=== PATIENT | male | born 1960 | race Caucasian/White ===

== ENCOUNTER 2017-01-24 20:43 | Emergency (ER) | payer BC, OTHER ==
[2017-01-24] MEDS ORDERED: Ketorolac Tromethamine 60 MG/2 ML VIAL ONE (20:57)
[2017-01-24] MEDS ORDERED: Sulfameth/Trimethoprim DS 800-160mg TAB ONE (20:57)
[2017-01-24] MEDS ORDERED: Cephalexin 250 MG CAP ONE (20:57)
== END 2017-01-24 21:20 | disposition home or self-care (01) ==
LOC: NAV ERS 20:43
DX: T24.011A Burn of unspecified degree of right thigh, initial encounter (principal); T31.0 Burns involving less than 10% of body surface; L03.115 Cellulitis of right lower limb; Z86.73 Personal history of transient ischemic attack (TIA), and cerebral infarction without residual deficits; X19.XXXA Contact with other heat and hot substances, initial encounter
CPT/HCPCS: 96372; J1885

== ENCOUNTER 2017-05-26 20:25 | Emergency (ER) | payer BC ==
[2017-05-26] MEDS ORDERED: Ondansetron HCl/PF 4 MG/2 ML Vial ONE (20:38)
[2017-05-26] MEDS ORDERED: Sodium Chloride 0.9% 1,000 ML ONE (20:44)
[2017-05-26 20:51] LABS: #Basophils 0.1 thou/uL (0.0-0.2); #Eosinphils 0.3 thou/uL (0.0-0.7); #Lymphocytes 2.9 thou/uL (1.20-3.40); #Monocytes 0.6 thou/uL (0.11-0.59); #Neutrophils 4.4 thou/uL (1.40-6.50); %Basophils 1.5 % (0.0-1.0); %Lymphocytes 34.7 % (21.0-51.0); %Monocytes 7.6 % (0.0-10.0); %Neutrophils 52.2 % (42.0-75.0); Hemoglobin 15.7 g/dL (14.0-18.0); Mean Corpuscular HGB CONC 33.3 g/dL (32.0-36.0); Mean Corpuscular Hemoglobin 30.8 pg (27.0-31.0); Mean Corpuscular Volume 92.4 fl (80.0-94.0); Mean Platelet Volume 7.3 fL (7.4-10.4); Platelet Count 249 thou/uL (130-400); Red Blood Cell (RBC) Count 5.09 mill/uL (4.70-6.10); White Blood Cell (WBC) Count 8.4 thou/uL (4.8-10.8)
[2017-05-26 21:11] LABS: ALT (SGPT) 24 U/L (8-55); AST (SGOT) 32 U/L (5-34); Albumin 4.6 g/dL (3.5-5.0); Alkaline Phosphatase 65 U/L (40-150); Anion Gap 17 mmol/L (10-20); BUN (Urea Nitrogen) 9 mg/dL (8.4-25.7); Bilirubin, Total 0.4 mg/dL (0.2-1.2); Calc. Creatinine Clearance 0 mL/min (70-130); Calcium 9.1 mg/dL (7.8-10.44); Carbon Dioxide 23 mmol/L (22-29); Chloride 99 mmol/L (98-107); Estimated GFR-MDRD 83; Glucose 96 mg/dL (70-105); Potassium 3.6 mmol/L (3.5-5.1); Protein, Total 7.6 g/dL (6.0-8.3); Sodium 135 mmol/L (136-145)
--- NOTE | 2017-05-26 21:24 | RAD ---
CHEST ONE VIEW 05/26/17 HISTORY: Food stuck in throat. COMPARISON: Chest radiograph 01/31/16. FINDINGS: The lungs are clear. No pneumothorax or effusion. The cardiac silhouette and mediastinal contours are within normal limits. IMPRESSION: No acute intrathoracic abnormality. POS: [id number]
== END 2017-05-26 22:58 | disposition short-term general hospital (02) ==
LOC: NAV ERS 20:25
DX: T18.128A Food in esophagus causing other injury, initial encounter (principal); F17.220 Nicotine dependence, chewing tobacco, uncomplicated; Z86.73 Personal history of transient ischemic attack (TIA), and cerebral infarction without residual deficits
CPT/HCPCS: 36415; 71045; 80053; 85025; 96361; 96374; 96375; J1610; J2405; J7050